=== PATIENT | male | born 1995 | race Caucasian/White ===

== ENCOUNTER 2022-12-07 01:25 | Emergency (ER) | payer MEDICAID ==
[~2022-12-07] VITALS: Ht 177.8 cm; Wt 73.0 kg
[2022-12-07 01:27] VITALS: BP 129/70; PULSE 72; RESP 16; TEMP 98.3; O2SAT 99
[2022-12-07] MEDS ORDERED: METH-653 MT (04:55)
[2022-12-07] MEDS ORDERED: IBUP-2029 MT (04:55)
== END 2022-12-07 06:02 | disposition home or self-care (01) ==
LOC: ER 01:25
DX: S10.93XA Contusion of unspecified part of neck, initial encounter (principal); S39.012A Strain of muscle, fascia and tendon of lower back, initial encounter; V49.9XXA Car occupant (driver) (passenger) injured in unspecified traffic accident, initial encounter; Y93.89 Activity, other specified; Y92.89 Other specified places as the place of occurrence of the external cause; Y99.8 Other external cause status
CPT/HCPCS: 72040; 72100; 73030; 73070; 73590; 99284